=== PATIENT | male | born 1985 | race African-American/Black ===

== ENCOUNTER 2018-10-11 00:55 | Emergency (ER) | END 2018-10-11 04:08 | disposition home or self-care (01) ==

== ENCOUNTER 2019-05-15 17:27 | Emergency (ER) | payer BC ==
[~2019-05-15] VITALS: Ht 180.3 cm; Wt 55.0 kg
[~2019-05-15 17:27] MED LIST: CYCL10TA7 PO; IBUP-1542 PO
[2019-05-15 17:30] VITALS: BP 132/68; PULSE 98; RESP 16; Ht 180.3 cm; Wt 55.0 kg
[2019-05-15] MEDS ORDERED: IBUPROFEN 800 MG TAB PO ONE (18:00)
[2019-05-15] MEDS ORDERED: IBUP800T48 PO (18:32)
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
== END 2019-05-15 19:29 | disposition home or self-care (01) ==
LOC: FTE 17:27
DX: M54.5 Low back pain (principal); M25.511 Pain in right shoulder; M54.2 Cervicalgia
CPT/HCPCS: 72040; 72100; 73030; 99284; Z7610